=== PATIENT | female | born 1985 ===

== ENCOUNTER 2017-09-09 08:53 | Emergency (ER) | payer OTHER ==
[2017-09-09 09:10] VITALS: RESP 18; O2SAT 100
[2017-09-09] MEDS ORDERED: Morphine 4 MG/ML VIAL IV STA (10:14)
--- NOTE | 2017-09-09 10:26 | ED PDOC ---
HPI: Chest Pain Time Seen by Provider: 09/09/17 09:11 Chief Complaint (Nursing): Chest Pain Chief Complaint (Provider): CP History Per: Patient, Family History/Exam Limitations: no limitations Onset/Duration Of Symptoms: Days (2) Additional Complaint(s): Pt states she has had cold and cough X 1 week, nonproductive, no fever, started having midsternal CP with cough since 3 AM today. Did not take any pain medication. Denies sore throat, palpitations, nausea, vomiting, abdominal pain , SCHROEDER. Past Medical History Reviewed: Nursing Documentation, Vital Signs Vital Signs: Last Vital Signs Temp 98.2 F 09/09/17 12:54 Pulse 87 09/09/17 12:54 Resp 18 09/09/17 12:54 BP 122/76 09/09/17 12:54 Pulse Ox 100 09/09/17 12:54 - Medical History PMH: No Chronic Diseases - Surgical History Other surgeries: Ovarian cyst removal - Family History Family History: States: Unknown Family Hx - Social History Current smoker - smoking cessation education provided: No Alcohol: None - Home Medications Home Medications: Ambulatory Orders Medication Instructions Recorded Naproxen [Naprosyn] 500 mg PO BID PRN #15 tablet 09/09/17 - Allergies Allergies/Adverse Reactions: Allergies Allergy/AdvReac Type Severity Reaction Status Date / Time No Known Allergies Allergy Verified 09/09/17 09:20 DEBBIE Risk Score for UA/NSTEMI - DEBBIE Risk Score Age > 64: NO 3 or more CAD Risk Factors: NO Known CAD (Stenosis greater than 50%): NO Aspirin use in past 7 days: NO Severe Angina: NO EKG ST changes greater than 0.5mm: NO Positive Cardiac Marker: NO DEBBIE Score: 0 Risk %: 5% Wells Criteria for PE - Wells Criteria for Pulmonary Embolism Clinical Signs and Symptoms of DVT: No P.E is #1 Diagnosis, or Equally Likely: No Heart Rate >100: No Immobilization at least 3 days;Surgery previous 4 weeks: No Previous, objectively diagnosed PE or DVT: No Hemoptysis: No Malignancy w/treatment within 6 months, or palliative: No Total Score: 0 Review of Systems Constitutional: Negative for: Fever, Chills Cardiovascular: Positive for: Chest Pain. Negative for: Palpitations Respiratory: Positive for: Cough, Pleuritic Pain. Negative for: Shortness of Breath, Hemoptysis, SOB with Exertion, Sputum, Wheezing Gastrointestinal: Negative for: Nausea, Vomiting, Abdominal Pain, Diarrhea Genitourinary Female: Negative for: Dysuria, Hematuria Musculoskeletal: Negative for: Neck Pain, Back Pain Skin: Negative for: Rash, Lesions Neurological: Negative for: Weakness, Numbness, Headache, Dizziness Physical Exam - Reviewed Nursing Documentation Reviewed: Yes Vital Signs Reviewed: Yes - Physical Exam Appears: Positive for: Well, No Acute Distress Head Exam: Positive for: ATRAUMATIC, NORMAL INSPECTION Skin: Positive for: Normal Color, Warm, Dry Eye Exam: Positive for: Normal appearance, EOMI, PERRL Cardiovascular/Chest: Positive for: Regular Rate, Rhythm. Negative for: Chest Non Tender (TTP midsternum) Respiratory: Positive for: Normal Breath Sounds. Negative for: Rales, Rhonchi, Wheezing Gastrointestinal/Abdominal: Positive for: Normal Exam, Bowel Sounds, Soft. Negative for: Tenderness Back: Positive for: Normal Inspection Extremity: Positive for: Normal ROM Neurologic/Psych: Positive for: Alert, Oriented - Laboratory Results Result Diagrams: 09/09/17 10:55 09/09/17 10:55 - ECG Interpretation Of ECG: NSR @ 98, no ST-T changes. O2 Sat by Pulse Oximetry: 100 Pulse Ox Interpretation: Normal Medical Decision Making Medical Decision Makin yo female with cough and pleuritic chest pain. - labs - EKG - CXR Accession No. : [id number] Patient Name / ID : ANABELLA MANRIQUE / [id number] Exam Date : 09/09/2017 10:16:31 ( Approved ) Study Comment : Sex / Age : F / 31Y Creator : Rober Benedict MD Dictator : Rober Benedict MD Home Inspector : Histology Manager : Rober Benedict MD Approver2 : Report Date : 09/09/2017 10:54:53 My Comment : HISTORY: Pleuritic CP COMPARISON: No prior. TECHNIQUE: Chest PA and lateral FINDINGS: LUNGS: No active pulmonary disease. PLEURA: No significant pleural effusion identified. No pneumothorax apparent. CARDIOVASCULAR: Normal. OSSEOUS STRUCTURES: No significant abnormalities. VISUALIZED UPPER ABDOMEN: Normal. OTHER FINDINGS: None. IMPRESSION: No acute cardiopulmonary disease appreciated. Disposition - Clinical Impression Clinical Impression: Pleuritic chest pain - Disposition Referrals: [facility] [Outside] Disposition: Routine/Home Disposition Time: 12:39 Condition: STABLE Prescriptions: Naproxen [Naprosyn] 500 mg PO BID PRN #15 tablet PRN Reason: Pain, Moderate (4-7) Instructions: Pleuritic Chest Pain Forms: [facility] (Bermudian) Print Language: KUWAITI
[2017-09-09] MEDS ORDERED: Sodium Chloride 0.9% 1,000 ML IV STA (10:45)
--- NOTE | 2017-09-09 10:56 | RAD ---
HISTORY: Pleuritic CP COMPARISON: No prior. TECHNIQUE: Chest PA and lateral FINDINGS: LUNGS: No active pulmonary disease. PLEURA: No significant pleural effusion identified. No pneumothorax apparent. CARDIOVASCULAR: Normal. OSSEOUS STRUCTURES: No significant abnormalities. VISUALIZED UPPER ABDOMEN: Normal. OTHER FINDINGS: None. IMPRESSION: No acute cardiopulmonary disease appreciated.
[2017-09-09 11:03] LABS: BASO % 0.2 % (0.0-2.0); EOS % 0.1 % (0.0-4.0); HEMOGLOBIN 11.9 g/dL (12.0-16.0); LYMPH # 1.6 K/uL (1.0-4.3); LYMPH % 8.5 % (20.0-40.0); MEAN CELL VOLUME 81.2 fl (81.0-99.0); MEAN CORPUSCULAR HEMOGLOBIN 26.5 pg (27.0-31.0); MEAN CORPUSCULAR HGB CONC 32.6 g/dL (33.0-37.0); MEAN PLATELET VOLUME 8.5 fl (7.2-11.7); MONO # 1.5 K/uL (0.0-0.8); MONO % 8.2 % (0.0-10.0); NEUT # 15.7 K/uL (1.8-7.0); NRBC % 0.1 % (0.0-0.0); PLATELET COUNT 302 K/uL (130-400); RED CELL DISTRIBUTION WIDTH 14.1 % (11.5-14.5); WHITE BLOOD COUNT 18.9 K/uL (4.8-10.8)
[2017-09-09 11:18] LABS: ALB/GLOB RATIO 1.1 (1.0-2.1); ALBUMIN 3.9 g/dL (3.5-5.0); ALT/SGPT 43 U/L (9-52); AST/SGOT 35 U/L (14-36); BLOOD UREA NITROGEN 12 mg/dl (7-17); CALCIUM 8.7 mg/dL (8.4-10.2); GFR AFRICAN-AMERICAN > 60; GFR NON-AFRICAN AMERICAN > 60
[2017-09-09 11:29] LABS: INR 1.1 (0.9-1.2); PARTIAL THROMBOPLASTIN TIME 37.3 Seconds (25.6-37.1); PROTHROMBIN TIME 11.8 Seconds (9.8-13.1)
[2017-09-09 11:48] LABS: LYMPHOCYTE 7 % (20-50); MONOCYTE 8 % (0-10); NEUTROPHIL 80 % (42-75); REACTIVE LYMPHOCYTES 5 % (0-0); TOTAL CELLS COUNTED 100
[2017-09-09 11:49] LABS: PLATELET ESTIMATE NORMAL (NORMAL)
[2017-09-09 11:50] LABS: HYPOCHROMIC SLIGHT
[2017-09-09 12:55] VITALS: BP 122/76; PULSE 87; TEMP 98.2
== END 2017-09-09 12:55 | disposition home or self-care (01) ==
LOC: H.ER 08:53
DX: R07.1 Chest pain on breathing (principal)
CPT/HCPCS: 71046; 80053; 84484; 85025; 85378; 85610; 85730; 99283; J2270; J7040